=== PATIENT | male | born 1960 | race Asian ===

== ENCOUNTER 2018-01-27 12:18 | Emergency (ER) | payer SELFPAY ==
[~2018-01-27] VITALS: Ht 172.7 cm; Wt 70.0 kg
[2018-01-27 12:23] VITALS: BP 184/101
[2018-01-27] MEDS ORDERED: KETOROLAC 30 MG/1 ML ONE (13:14)
[2018-01-27] MEDS ORDERED: KETOROLAC 30 MG/1 ML IM ONE (13:30)
== END 2018-01-27 13:51 | disposition home or self-care (01) ==
LOC: ED 13:45
DX: S83.412A Sprain of medial collateral ligament of left knee, initial encounter (principal); I10 Essential (primary) hypertension; X58.XXXA Exposure to other specified factors, initial encounter; Y93.01 Activity, walking, marching and hiking; Y92.89 Other specified places as the place of occurrence of the external cause; Y99.8 Other external cause status
CPT/HCPCS: 29505; 96372; 99283; J1885